=== PATIENT | female | born 1945 | race Caucasian/White ===

== ENCOUNTER 2023-12-07 13:53 | Emergency (ER) | payer MEDICARE, BC, SELFPAY ==
[2023-12-07 13:57] VITALS: BP 99/50
--- NOTE | 2023-12-07 14:28 | ED.GENMED ---
History of Present Illness
General
Chief Complaint: Dizziness
Time Seen by Provider: 12/07/23 14:19
History of Present Illness
History of Present Illness:
78-year-old female with history of A-fib on Xarelto, wbm-[id number]-lphdtcbec diabetes, coronary artery disease status post CABG, hypertension, and hyperlipidemia presents to the emergency department for evaluation of a dizzy episode associated with a
visual abnormality. She states she often gets dizzy after taking her morning medications, has not discussed this with her primary care physician. This occasional dizziness has been ongoing for the past 6 months or more. She notes that today when
this episode occurred she had 'colorful visual patterns' that seem to obscure her vision. She denies this being anyone similar to a kaleidoscope, describes it as 'someone pulling hounds tooth across my vision'. Denies any visual loss or headache
associated with this. She states she has a history of ocular migraines but this was distinctly different. No neck pain or extremity paresthesias. Currently improved. She does also note a history of labile hypertension
Review of Systems
Review of Systems
Allergies reviewed?: Yes
All Other Systems: ROS reviewed and negative except as documented in HPI and ROS
Phy Exam
Physical Exam
Physical Exam:
GEN: Well appearing, NAD, WDWN
HEENT: Oral mucosa moist, no scleral icterus, no nasal congestion
Cardiac: Regular rate and rhythm, no murmurs
Lung: No respiratory distress, no tachypnea, lungs clear to auscultation bilaterally
MSK: No gross deformity or injuries
Skin: Good color, no pallor or jaundice, no rashes
Neuro: AO x3; CN II-XII grossly intact. BUE strength 5/5 in all pacheco, sensation intact and symmetric. BLE strength 5/5 in all pacheco, sensation intact and symmetric
Psych: Calm, cooperative
Course
Orders/Labs/Results
Orders:
Orders
12/07/23 14:04
EKG [Electrocardiogram (*1)] Urgent
Reason for Study: Vertigo / Dizzy
EKG- Treatment ONCE
12/07/23 14:28
CT Head W/o Iv Contrast Urgent
Comment:
Reason For Exam: dizziness
Orthostatic VS- Treatment ONCE
12/07/23 14:35
Complete Blood Count/With Diff Urgent
Comprehensive Metabolic Panel Urgent
Abnormal Lab Results
12/07/23
14:35
RBC 3.69 L 10^6/uL
(4.20-5.40)
Hgb 10.6 L g/dL
(12.0-16.0)
Hct 31.3 L %
(37.0-47.0)
Chloride 110 H mmol/L
(98-107)
BUN 20 H mg/dl
(7-17)
Glucose 143 H mg/dl
(70-99)
12/07/23 14:35
12/07/23 14:35
Vital Signs
Initial and Last Documented VS:
Initial Vital Signs
Temp Pulse Resp BP Pulse Ox
98.5 F 65 18 99/50 98
12/07/23 13:57 12/07/23 13:57 12/07/23 13:57 12/07/23 13:57 12/07/23 13:57
Last Documented Vital Signs
Temp Pulse Resp BP Pulse Ox
98.5 F 65 18 99/50 98
12/07/23 13:57 12/07/23 13:57 12/07/23 13:57 12/07/23 13:57 12/07/23 13:57
MDM/Problems Addressed
MDM/Problems Addressed:
Patient's visual pattern is highly suspicious for ocular migraine given patterns of color however this would not be associated with dizziness typically. She does note that she typically has morning dizziness in association with taking her
medications, could suggest some component of polypharmacy. She is slightly hypotensive on arrival however this improved without intervention, patient notes a history of labile hypertension predominantly in the evening. Certainly could be a
polypharmacy medication interaction with hypotension however she is not orthostatic in the emergency department. No focal neurologic deficits concerning for CVA. She is able to ambulate and is steady at time of discharge, recommend she discuss her
medications and potential interactions with her primary care physician
Comment
Comment:
EKG independently interpreted by me shows normal sinus rhythm at a rate of 60 with diffuse T wave flattening in the lateral leads, no ST depressions or elevations concerning for ischemia, QTc of 454
*Critical Care Note
Total Time (30-74mins, 75-104mins- exclusive of procedures): Not Applicable
ED Attending Note
-
Portions of this chart may have been created with voice recognition software.� Occasional wrong word or��sound alike� substitutions may have occurred due to the inherent limitations of voice recognition software.
Discharge Plan
Departure
Patient Disposition: Home (Routine Discharge)
Date of Disposition: 12/07/23
Time of Disposition: 16:09
Patient with high blood pressure during this ER visit?: No
Discharge Problem:
Dizziness, [place]
Instructions: Dizziness, Nonvertigo, (DC)
Referrals:
Lauryn Rojo MD [Family Provider] -
Activity Restrictions/Additional Instructions:
Discuss any appropriate medication adjustments with your primary doctor
Interventions
Interventions:
*Risk Screen - Suicide Last Done: 12/07/23 15:43
*General Assessment Last Done: 12/07/23 13:57
*Neglect/Abuse Screening Last Done: 12/07/23 15:43
ED- Fall Risk Assessment Last Done: 12/07/23 15:43
*ED COVID-19 Vaccine History Last Done: 12/07/23 13:57
*Nursing Disposition Last Done: 12/07/23 16:17
ED- Neurological Assessment Last Done: 12/07/23 15:43
Discharge Date and Time
Discharge Date/Time: 12/07/23 16:17
Print Language: GERMAN
[2023-12-07 14:44] LABS: % Basophils 0.7 % (0-2); % Eosinophils 4.2 % (0-6); % Immature Granulocytes 0.3 % (0-0.5); % Lymphocytes 24.4 % (20.5-51.1); % Monocytes 8.2 % (1.7-9.3); % Neutrophils 62.2 % (42.2-75.2); Absolute Basophils 0.1 10^3/uL (0-0.2); Absolute Eosinophils 0.3 10^3/uL (0-0.7); Absolute Lymphocytes 1.8 10^3/uL (1.2-3.4); Absolute Monocytes 0.6 10^3/uL (0.1-0.6); Absolute Neutrophils 4.6 10^3/uL (1.4-6.5); Hematocrit 31.3 % (37.0-47.0); Hemoglobin 10.6 g/dL (12.0-16.0); Mean Corp Hgb Conc. 33.9 g/dL (33.0-37.0); Mean Corpuscular Hgb 28.7 pg (27.0-31.0); Mean Corpuscular Volume 84.8 fL (81.0-99.0); Mean Platelet Volume 9.7 fL (7.4-10.4); Nucleated Red Blood Cells % 0 %; Platelet Count 214 10^3/uL (130-400); Red Blood Cell Count 3.69 10^6/uL (4.20-5.40); White Blood Cell Count 7.3 10^3/uL (4.8-10.8)
[2023-12-07 15:03] LABS: ALT (SGPT) 16 U/L (0-35); AST (SGOT) 20 U/L (14-36); Albumin 3.9 g/dl (3.5-5.0); Alkaline Phosphatase 80 U/L (38-126); Blood Urea Nitrogen 20 mg/dl (7-17); Calcium 9.5 mg/dl (8.4-10.2); Carbon Dioxide 22 mmol/L (22-30); Chloride 110 mmol/L (98-107); Glucose 143 mg/dl (70-99); Potassium 4.8 mmol/L (3.5-5.1); Sodium 139 mmol/L (135-145); Total Bilirubin 0.5 mg/dl (0.2-1.3); Total Protein 6.4 g/dl (6.3-8.2); eGFR > 60.00
[2023-12-07 15:42] VITALS: BP 115/50; BP 119/50; BP 130/42; PULSE 55; PULSE 56; PULSE 57
== END 2023-12-07 16:17 | disposition home or self-care (01) ==
LOC: EMR 13:53
PROVIDERS: Physician Assistant; EMERGENCY PHYSICIAN Emergency Medicine; FAMILY PHYSICIAN Internal Medicine
DX: R42 Dizziness and giddiness (principal); H53.459 Other localized visual field defect, unspecified eye; I48.91 Unspecified atrial fibrillation; E11.9 Type 2 diabetes mellitus without complications; I25.10 Atherosclerotic heart disease of native coronary artery without angina pectoris; I10 Essential (primary) hypertension; E78.00 Pure hypercholesterolemia, unspecified; Z79.01 Long term (current) use of anticoagulants; Z95.1 Presence of aortocoronary bypass graft
CPT/HCPCS: 99284; 70450; 80053; 85025; 93005